=== PATIENT | female | born 1995 | race Caucasian/White ===

== ENCOUNTER 2017-08-22 11:56 | Emergency (ER) | payer OTHER ==
[2017-08-22 14:15] LABS: BASO % 0.3 % (0.0-1.0); EOS # 0.1 10^3/uL (0.0-0.50); EOS % 0.6 % (0.0-3.0); HEMOGLOBIN 10.7 g/dl (12.0-15.5); IMMATURE GRANULOCYTE % 0.4 % (0-3.0); LYMPH # 1.2 10^3/uL (1.5-6.5); LYMPH % 9.5 % (24.0-44.0); MEAN CORPUSCULAR HEMOGLOBIN 19.2 pg (27.0-33.0); MEAN CORPUSCULAR HGB CONC 31.5 g/dl (32.0-36.5); MONO # 0.8 10^3/uL (0.0-0.8); MONO % 6.5 % (0.0-5.0); NEUTROPHILS # 10.5 10^3/uL (1.8-7.7); NEUTROPHILS % 82.7 % (36.0-66.0); PLATELET COUNT, AUTOMATED 227 10^3/uL (150-450); RED BLOOD COUNT 5.57 10^6/uL (4.00-5.40); RED CELL DISTRIBUTION WIDTH 15.9 % (11.5-14.5); WHITE BLOOD COUNT 12.7 10^3/uL (4.0-10.0)
[2017-08-22 14:24] LABS: AMORPHOUS SEDIMENT SMALL (NEGATIVE); APPEARANCE, URINE CLOUDY (CLEAR); BACTERIA, URINE AUTO 3+ (NEGATIVE); BILIRUBIN, URINE AUTO NEGATIVE (NEGATIVE); BLOOD, URINE BLOOD NEGATIVE (NEGATIVE); COLOR, URINE AMBER (YELLOW); GLUCOSE, URINE (UA) AUTO NEGATIVE (NEGATIVE); KETONE, URINE AUTO NEGATIVE (NEGATIVE); LEUKOCYTE ESTERASE, URINE AUTO NEGATIVE (NEGATIVE); MUCUS, URINE LARGE (NEGATIVE); NITRITE, URINE AUTO POSITIVE (NEGATIVE); PROTEIN, URINE AUTO 1+ mg/dL (NEGATIVE); RBC, URINE AUTO 2 /HPF (0-3); SPECIFIC GRAVITY URINE AUTO 1.026 (1.002-1.035); SQUAMOUS EPITHELIAL CELL UR AU 14 /HPF (0-6); TRANSITIONAL EPITHELIAL AUTO 1 /HPF; WBC, URINE AUTO 3 /HPF (0-3)
[2017-08-22 14:48] LABS: HCG, SERUM QUANTITATIVE 65444 MIU/ML
[2017-08-22 16:03] LABS: CHLAMYDIA DNA AMPLIFICATION NEGATIVE (NEGATIVE); GC DNA AMPLIFICATION NEGATIVE (NEGATIVE)
[2017-08-22] MEDS ORDERED: RHOGAM 300 MCG (1500 IU) INJ (J2790) IM (16:15)
[2017-08-22 17:03] LABS: AB SCREEN (INDIRECT COOMBS)VIS 1 1
== END 2017-08-22 17:29 | disposition home or self-care (01) ==
LOC: M ED 11:56
DX: O20.8 Other hemorrhage in early pregnancy (principal); Z3A.10 10 weeks gestation of pregnancy
CPT/HCPCS: 76801

== ENCOUNTER 2018-01-28 14:38 | Outpatient (CLI) | payer OTHER ==
[~2018-01-28] VITALS: Ht 167.6 cm; Wt 75.7 kg
[~2018-01-28 14:38] MED LIST: IRON325T7 PO; PRENTAB55 PO
[2018-01-28 14:54] VITALS: BP 108/51
[2018-01-28] MEDS ORDERED: PRENTAB9 PO (15:00)
[2018-01-28 15:30] VITALS: BP 111/58
[2018-01-28 16:15] VITALS: BP 107/59
[2018-01-28 16:18] LABS: HEMATOCRIT 25.1 % (36.0-47.0); HEMOGLOBIN 7.6 g/dl (12.0-15.5); MEAN CORPUSCULAR HEMOGLOBIN 18.5 pg (27.0-33.0); MEAN CORPUSCULAR HGB CONC 30.3 g/dl (32.0-36.5); MEAN CORPUSCULAR VOLUME 61.1 fl (80.0-96.0); PLATELET COUNT, AUTOMATED 147 10^3/uL (150-450); RED BLOOD COUNT 4.11 10^6/uL (4.00-5.40); WHITE BLOOD COUNT 8.6 10^3/uL (4.0-10.0)
--- NOTE | 2018-01-29 10:13 | HPE ---
DATE OF ADMISSION: 01/28/2018 This lady is a 22-year-old 4, para 1, abort 2. LMP 06/12/2017, EDC 03/19/2018. She is at 33 and 2 weeks of gestation. She is a transfer of care out to [facility] with the lining ironer. She had a history of fall yesterday on the ice but did not come in. She denies any vaginal bleeding or loss. Good kick chart and then she fell again today at work in the water again on her back. Denies any vaginal bleeding or loss and we have limited history on the patient. Her past history in 2015 spontaneous . 2016 at 40 weeks 6 days, 3.9 kg 8 pounds 13 ounces male spontaneous vaginal delivery. 2018 had a spontaneous at 11 weeks. Risk factors is she is O negative. 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 Patient's history says she has had abnormal Pap smear done at 13 weeks but does not know what the etiology is. She on ultrasound shows has a two-vessel cord. She did not do her 1-hour glucose test. She is significantly dehydrated today. She is MRSA positive as of 2018. Poor care compliance and there is a question of blood transfusion, however, the patient has no recollection or history. Her urine is 10/25, pH is 5, trace of leukocyte plus for nitrates and plus for protein. She is significantly anemic in that her hemoglobin is 7.6, hematocrit 25.1 and platelets are 147, blood pressure is 107/59, respirations are 18, pulse is 92, temperature 98.3 PHYSICAL EXAMINATION: She is in no acute distress. Symphysis fundus height is 32. Four quadrant bowel sounds are noted. She has multiple tattoos over her abdomen and the rest of her body. heart rate is regular 146 beats per minute. Category one strip moderate variability, baseline 110-130. No contractions noted. The occasional irritability and tightening no decelerations were noted. Scan at the bedside shows a vertex presentation with active limits, spontaneous breathing, heart cardiac activity 144 beats per minute. Placenta is posterior. No bleeding. STEPH noted in three to four quadrants appeared to be grossly normal subjectively. No spotting or vaginal bleeding. Cervix appears to be closed. The rest of the examination is unremarkable. She is normocephalic, atraumatic. Neck: Full range of motions. Pupils equal and reactive to light. She has significant dehydration. Her lips are cracked and skin is dry and skin turgor is poor. Chest is clear bilaterally bases. No wheezes or rhonchi. No CVA tenderness. Distal pulses symmetric. No evidence of DVT, PE or superficial phlebitis. Body is covered with multiple tattoos. Four quadrant bowel sounds are noted. Soft abdomen with spontaneous movements of the baby. No rashes, lesions or pruritus. No arthralgia, myalgia. No complaint of joint pain. No complaint cough, wheeze, shortness breath or dyspnea on exertion. No bleeding. Neuro complete. No incontinency or frequency. No nausea, vomiting, diarrhea or constipation. No diabetic issues. [employer] according to the patient she has an abnormal Pap smear unconfirmed. PAST MEDICAL HISTORY: Unremarkable. PAST SURGICAL HISTORY: Unremarkable. SOCIAL HISTORY: She does not smoke, drink abuse drugs. She is . Works at [employer]. No domestic violence. Good support. She is here with her mother. In summary we have a 33-weeker who fell more than 24 hours ago. No evidence of vaginal loss or bleeding. Has poor care poor compliance multiple issues in the fact she has a bicornate uterus two-vessel cord, MRSA positive and was hydrated up here and blood work was drawn. Precautions were given and she has an appointment on with her primary-care lining ironer in [place]. She was discharged undelivered. cc: [facility] Dee
== END 2018-01-28 16:30 | disposition home or self-care (01) ==
LOC: M LDI 14:38 → M LDO 14:38
PROVIDERS: ATTEND Obstetrics & Gynecology
DX: O99.89 Other specified diseases and conditions complicating pregnancy, childbirth and the puerperium (principal); O9A.213 Injury, poisoning and certain other consequences of external causes complicating pregnancy, third trimester; W16.42XA Fall into unspecified water causing other injury, initial encounter; Y92.59 Other trade areas as the place of occurrence of the external cause; O99.283 Endocrine, nutritional and metabolic diseases complicating pregnancy, third trimester; E86.0 Dehydration; O09.893 Supervision of other high risk pregnancies, third trimester; O09.33 Supervision of pregnancy with insufficient antenatal care, third trimester; D64.9 Anemia, unspecified; O36.0190 Maternal care for anti-D [Rh] antibodies, unspecified trimester, not applicable or unspecified; B95.62 Methicillin resistant Staphylococcus aureus infection as the cause of diseases classified elsewhere; O35.8XX0 Maternal care for other (suspected) fetal abnormality and damage, not applicable or unspecified; Z3A.33 33 weeks gestation of pregnancy; O34.00 Maternal care for unspecified congenital malformation of uterus, unspecified trimester; Q51.3 Bicornate uterus; O99.011 Anemia complicating pregnancy, first trimester
CPT/HCPCS: 36415; 59025; 76815; 85027; 85460; 86850; 86870; 86900; 86901; G0378; G0463

== ENCOUNTER → 2018-02-08 | Outpatient (REF) | payer OTHER ==
[~2018-02-08] MED LIST changes: +PRENTAB9 PO
[2018-02-08 15:41] LABS: INFLUENZA A AMPLIFICATION NEGATIVE (NEGATIVE); INFLUENZA B AMPLIFICATION NEGATIVE (NEGATIVE)
== END ==
LOC: M LAB REF 14:42
PROVIDERS: ATTEND Physician Assistant
DX: J11.1 Influenza due to unidentified influenza virus with other respiratory manifestations (principal)

== ENCOUNTER 2018-09-28 20:16 | Emergency (ER) | payer OTHER ==
[~2018-09-28] VITALS: Ht 167.6 cm; Wt 59.1 kg
[~2018-09-28 20:16] MED LIST changes: +FERR325T82 PO; -IRON325T7 PO
[2018-09-28] MEDS ORDERED: MICR1TAB18 PO (20:20)
[2018-09-28] MEDS ORDERED: birth control tablet (20:20)
[2018-09-28] MEDS ORDERED: ACETAMINOPHEN 325 MG TAB PO ONE (21:15)
[2018-09-28 22:43] VITALS: BP 126/60
--- NOTE | 2018-09-29 00:01 | ECGEPIP ---
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
== END 2018-09-28 22:44 | disposition home or self-care (01) ==
LOC: M ED 20:16
DX: B34.9 Viral infection, unspecified (principal); Z20.89 Contact with and (suspected) exposure to other communicable diseases; Z79.899 Other long term (current) drug therapy

== ENCOUNTER → 2019-01-24 | Outpatient (CLI) | payer OTHER ==
[~2019-01-24] MED LIST changes: +MICR1TAB18 PO; +birth control tablet
--- NOTE | 2019-01-24 19:29 | REP ---
First trimester obstetric sonography: History: Supervision of . Findings: Transabdominal and endovaginal scanning are performed. There is an intrauterine gestational sac containing a yolk sac, but no identifiable embryonic pole. By mean sac size diameter of 11 mm, gestational age estimate would be 5 weeks 6 days. There is a 2 cm complex cystic area in the maternal right ovary. Right ovarian dimensions are 4.3 x 2.3 x 2.5 cm. Left ovary measures 1.5 x 2.3 x 2.2 cm. There is a trace of fluid is in the cul-de-sac on the right. Uterine dimensions are 8.9 x 6.0 x 6.5 cm. Impression: There is an intrauterine gestational sac at 5 weeks 6 days by mean sac size diameter. There is a yolk sac but no identifiable embryonic pole. Clinical and possibly sonographic followup suggested. Electronically Signed by Jose Kumar MD 01/24/2019 07:58 P
== END ==
LOC: M RAD 15:31
PROVIDERS: ATTEND Nurse Practitioner Family
DX: Z32.01 Encounter for pregnancy test, result positive (principal); Z3A.01 Less than 8 weeks gestation of pregnancy

== ENCOUNTER → 2021-03-16 | Outpatient (CLI) | payer OTHER | LOC: M WHC 11:45 | PROVIDERS: ATTEND Specialist | DX: Z36.9 Encounter for antenatal screening, unspecified (principal); Z3A.20 20 weeks gestation of pregnancy ==

== ENCOUNTER → 2021-04-20 | Outpatient (CLI) | payer OTHER | LOC: M WHC 10:23 | PROVIDERS: ATTEND Specialist | DX: Z34.82 Encounter for supervision of other normal pregnancy, second trimester (principal); Z3A.25 25 weeks gestation of pregnancy ==

== ENCOUNTER → 2021-05-07 | Outpatient (CLI) | payer OTHER ==
[2021-05-07 15:30] LABS: HEMOGLOBIN 8.9 g/dl (12.0-15.5); MEAN CORPUSCULAR HEMOGLOBIN 19.2 pg (27.0-33.0); MEAN CORPUSCULAR HGB CONC 30.7 g/dl (32.0-36.5); MEAN CORPUSCULAR VOLUME 62.6 fl (80.0-96.0); PLATELET COUNT, AUTOMATED 189 10^3/uL (150-450); RED BLOOD COUNT 4.63 10^6/uL (4.00-5.40); WHITE BLOOD COUNT 10.8 10^3/uL (4.0-10.0)
[2021-05-07 17:05] LABS: GC DNA AMPLIFICATION NEGATIVE (NEGATIVE)
== END ==
LOC: M PLALAB 11:36
PROVIDERS: ATTEND Advanced Practice Midwife
DX: Z34.82 Encounter for supervision of other normal pregnancy, second trimester (principal)

== ENCOUNTER → 2021-05-11 | Outpatient (CLI) | payer OTHER ==
[2021-05-11 14:26] LABS: PERCENT SATURATION 9.7 % (13.2-45.0)
== END ==
LOC: M PLALAB 11:19
PROVIDERS: ATTEND Advanced Practice Midwife
DX: D56.3 Thalassemia minor (principal)

== ENCOUNTER → 2021-06-21 | Outpatient (CLI) | payer OTHER ==
[~2021-06-21] MED LIST changes: -MICR1TAB18 PO; +NORE1TAB94 PO
[2021-06-21 18:15] LABS: BILIRUBIN,DIRECT 0.1 MG/DL (0.0-0.2); BILIRUBIN,TOTAL 0.4 MG/DL (0.2-1.0); TOTAL PROTEIN 6.2 GM/DL (6.4-8.2)
== END ==
LOC: M PLALAB 14:55
PROVIDERS: ATTEND Advanced Practice Midwife
DX: D56.3 Thalassemia minor (principal); K83.1 Obstruction of bile duct

== ENCOUNTER → 2021-07-12 | Outpatient (REF) | payer OTHER | LOC: M SFHCWAGY 12:46 | PROVIDERS: ATTEND Obstetrics & Gynecology | DX: Z3A.37 37 weeks gestation of pregnancy ==

== ENCOUNTER 2021-07-19 20:26 | Outpatient (CLI) | payer OTHER ==
[~2021-07-19] VITALS: Ht 167.6 cm; Wt 88.0 kg
[2021-07-19 20:41] VITALS: BP 113/60
[2021-07-19] MEDS ORDERED: PRENTAB9 PO (20:57)
[2021-07-19] MEDS ORDERED: FOLI400T13 PO (20:57)
[2021-07-19] MEDS ORDERED: HOME MED LIST COMPLETE! XX SCH (21:00)
[2021-07-19 21:27] LABS: HEMATOCRIT 26.9 % (36.0-47.0); HEMOGLOBIN 7.9 g/dl (12.0-15.5); MEAN CORPUSCULAR HEMOGLOBIN 17.1 pg (27.0-33.0); MEAN CORPUSCULAR HGB CONC 29.4 g/dl (32.0-36.5); MEAN CORPUSCULAR VOLUME 58.2 fl (80.0-96.0); PLATELET COUNT, AUTOMATED 187 10^3/uL (150-450); RED BLOOD COUNT 4.62 10^6/uL (4.00-5.40)
[2021-07-19] MEDS ORDERED: IRON SUCROSE 100MG 5ML VIAL (J1756 PER 1MG) IV ONE (21:50)
[2021-07-19 22:39] VITALS: BP 118/55
[2021-07-19 22:58] VITALS: BP 112/55
[2021-07-19] MEDS ORDERED: IRON SUCROSE 400 MG in NS 250 ML OVER 2.5 HRS IV ONE (23:30)
[2021-07-20 00:24] VITALS: BP 117/59
[2021-07-20 01:09] VITALS: BP 123/60
== END 2021-07-20 01:18 | disposition home or self-care (01) ==
LOC: M LDO 20:26
PROVIDERS: ATTEND Advanced Practice Midwife
DX: O60.03 Preterm labor without delivery, third trimester (principal); O99.013 Anemia complicating pregnancy, third trimester; D50.9 Iron deficiency anemia, unspecified; D56.3 Thalassemia minor; W10.9XXA Fall (on) (from) unspecified stairs and steps, initial encounter; Y92.9 Unspecified place or not applicable; Y93.9 Activity, unspecified; Y99.8 Other external cause status; Z3A.38 38 weeks gestation of pregnancy
CPT/HCPCS: 36415; 59025; 85027; 85384; 85460; J1756

== ENCOUNTER 2021-07-23 13:05 | Outpatient (CLI) | payer OTHER ==
[~2021-07-23] VITALS: Ht 167.6 cm; Wt 87.0 kg
[~2021-07-23 13:05] MED LIST changes: +FOLI400T13 PO
[2021-07-23 13:20] VITALS: BP 114/64
[2021-07-23 15:02] VITALS: BP 106/69
== END 2021-07-23 15:15 | disposition home or self-care (01) ==
LOC: M LDO 13:05
PROVIDERS: ATTEND Specialist
DX: O26.893 Other specified pregnancy related conditions, third trimester (principal); O26.853 Spotting complicating pregnancy, third trimester; R25.2 Cramp and spasm; Z3A.38 38 weeks gestation of pregnancy

== ENCOUNTER 2021-07-28 20:02 | Inpatient (IN) | payer OTHER ==
[~2021-07-28] VITALS: Ht 167.6 cm; Wt 87.8 kg
[2021-07-28 20:29] VITALS: BP 119/61
[2021-07-28 20:58] LABS: HEMATOCRIT 29.3 % (36.0-47.0); HEMOGLOBIN 8.5 g/dl (12.0-15.5); MEAN CORPUSCULAR HEMOGLOBIN 17.2 pg (27.0-33.0); MEAN CORPUSCULAR VOLUME 59.2 fl (80.0-96.0); PLATELET COUNT, AUTOMATED 157 10^3/uL (150-450); RED BLOOD COUNT 4.95 10^6/uL (4.00-5.40); WHITE BLOOD COUNT 10.3 10^3/uL (4.0-10.0)
[2021-07-28] MEDS ORDERED: METHYLERGONOVINE MALEATE 0.2 MG/ML VIAL (J2210) IM PRN (21:25)
[2021-07-28] MEDS ORDERED: CARBOPROST TROMETHAMINE 250 MCG/ML AMP IM PRN (21:25)
[2021-07-28] MEDS ORDERED: OXYTOCIN INJ 10 UNITS/ML VIAL (J2590) IM PRN (21:25)
[2021-07-28] MEDS ORDERED: LIDOCAINE 1% MDV 20ML VIAL INFIL PRN (21:25)
[2021-07-28] MEDS ORDERED: OXYTOCIN DRIP 30 UNITS in IV 1 EA IV PRN ×4 (21:25)
[2021-07-28] MEDS ORDERED: TRANEXAMIC ACID INJection 1,000 MG in NS 100 ML IV PRN (21:25)
[2021-07-28 23:06] LABS: HEPATITIS B SURFACE ANTIGEN NEGATIVE (NEGATIVE); HEPATITIS C VIRUS ABY INDEX 0.1 INDEX (<0.8); HIV 1&2 SCREEN CENTAUR NEGATIVE (NEGATIVE)
[2021-07-28 23:16] VITALS: BP 121/60
[2021-07-28] MEDS: miSOPROStol 50MCG 1/2 TABLET PO SCH (23:17)
[2021-07-29] VITALS (57 sets, daily range): BP systolic 92–146; BP diastolic 50–84
[2021-07-29] MEDS: miSOPROStol 50MCG 1/2 TABLET PO SCH (04:11)
[2021-07-29] MEDS ORDERED: ACETAMINOPHEN 500 MG TAB PO PRN ×2 (04:15→13:45)
[2021-07-29] MEDS ORDERED: FENTANYL 2MCG/ML ROPIVACAINE 0.2% IN 0.9% NACL 100ML IVBAG As Ordered ONE (05:13)
[2021-07-29] MEDS ORDERED: LR 1,000 ML IV ONE (05:40)
[2021-07-29] MEDS ORDERED: diphenhydrAMINE 50MG/ML VIAL (J1200) IV PRN (05:50)
[2021-07-29] MEDS ORDERED: ONDANSETRON 4MG 2ML VIAL IV PRN (05:50)
[2021-07-29] MEDS ORDERED: FENTANYL/ROPIVACAINE/NACL BAG 100 ML EPIDURAL SCH (05:50)
[2021-07-29] MEDS ORDERED: NALOXONE INJ 0.4MG/1ML VIAL (J2310 PER 1MG) IV PRN (05:50)
[2021-07-29] MEDS ORDERED: EPIDURAL/PCA KEYS XX PRN (05:50)
[2021-07-29] MEDS ORDERED: ePHEDrine SULFATE 25 MG/5 ML(5MG/ML) SYRINGE IVP PRN (05:50)
[2021-07-29] MEDS ORDERED: LR 500 ML IV PRN (05:50)
[2021-07-29] MEDS: LR 1,000 ML IV SCH ×2 (05:54→10:14)
[2021-07-29] MEDS ORDERED: OXYTOCIN DRIP 30 UNITS in IV 1 EA IV SCH (08:10)
[2021-07-29] MEDS ORDERED: OXYTOCIN 30 UNITS IN 0.9% NaCl 500ML IV BAG (J2590) As Ordered ONE (08:17)
[2021-07-29] MEDS ORDERED: DOCUSATE SODIUM 100MG CAPSULE PO PRN (13:45)
[2021-07-29] MEDS ORDERED: METHYLERGONOVINE MALEATE 0.2 MG TAB PO PRN (13:45)
[2021-07-29] MEDS ORDERED: DIBUCAINE 1% OINTMENT 30GM TOP PRN (13:45)
[2021-07-29] MEDS ORDERED: IBUPROFEN 600MG TAB PO PRN (13:45)
[2021-07-29] MEDS ORDERED: OXYTOCIN DRIP 30 UNITS in IV 1 EA IV ONE (13:45)
[2021-07-29] MEDS ORDERED: ACETAMINOPHEN TAB 650MG DOSE (2X325MG) PO PRN (13:45)
[2021-07-29] MEDS ORDERED: RHOGAM 300 MCG (1500 IU) INJ (J2790) IM SCH (13:45)
[2021-07-29] MEDS: IBUPROFEN 800 MG TAB PO PRN (19:39)
[2021-07-30] MEDS: IBUPROFEN 800 MG TAB PO PRN ×2 (04:10→20:08)
[2021-07-30 06:00] VITALS: BP 117/55
[2021-07-30] MEDS: PRENATAL VITAMINS CHEWABLE TABLET PO SCH (09:25)
[2021-07-30 18:00] VITALS: BP 137/68
[2021-07-31 05:30] VITALS: BP 118/59
[2021-07-31] MEDS ORDERED: MEASLES,MUMPS,RUBELLA VACCINE INJ (MMR-II) (90707) SC.IMMUN ONE (09:00)
[2021-07-31] MEDS: PRENATAL VITAMINS CHEWABLE TABLET PO SCH (09:41)
== END 2021-07-31 11:35 | disposition home or self-care (01) | DRG 560 ==
LOC: M LDI 20:02 → M OBS 07-29 16:09
PROVIDERS: ADMIT Advanced Practice Midwife; ATTEND Advanced Practice Midwife
PROC: 10E0XZZ Delivery of Products of Conception, External Approach (ICD-10-PCS; principal; 2021-07-29)
DX: O99.02 Anemia complicating childbirth (principal); Z37.0 Single live birth; Z3A.39 39 weeks gestation of pregnancy; D56.9 Thalassemia, unspecified

== ENCOUNTER → 2021-08-23 | Outpatient (REF) | payer OTHER ==
[2021-08-23 16:05] LABS: BASO # 0.1 10^3/uL (0.0-0.2); BASO % 1.3 % (0.0-1.0); EOS # 0.2 10^3/uL (0.0-0.5); EOS % 3.6 % (0.0-3.0); HEMATOCRIT 37.4 % (36.0-47.0); HEMOGLOBIN 10.7 g/dl (12.0-15.5); LYMPH # 1.7 10^3/uL (1.5-5.0); LYMPH % 31.8 % (24.0-44.0); MEAN CORPUSCULAR HEMOGLOBIN 17.7 pg (27.0-33.0); MEAN CORPUSCULAR HGB CONC 28.6 g/dl (32.0-36.5); MEAN CORPUSCULAR VOLUME 61.8 fl (80.0-96.0); MONO # 0.5 10^3/uL (0.0-0.8); MONO % 8.8 % (2.0-8.0); NEUTROPHILS # 2.9 10^3/uL (1.5-8.5); NEUTROPHILS % 54.3 % (36.0-66.0); PLATELET COUNT, AUTOMATED 246 10^3/uL (150-450); RED BLOOD COUNT 6.05 10^6/uL (4.00-5.40); WHITE BLOOD COUNT 5.3 10^3/uL (4.0-10.0)
[2021-08-23 16:46] LABS: FOLATE 10.5 NG/ML (>5.4)
== END ==
LOC: M SFHCCLAY 10:09
PROVIDERS: ATTEND Nurse Practitioner Family
DX: D56.3 Thalassemia minor (principal); D50.9 Iron deficiency anemia, unspecified

== ENCOUNTER → 2021-09-08 | Outpatient (REF) | payer OTHER | LOC: M SFHCCLAY 09:43 | PROVIDERS: ATTEND Nurse Practitioner Family | DX: R05.1 Acute cough (principal) ==

== ENCOUNTER → 2023-10-17 | Outpatient (REF) | payer OTHER | LOC: M SFHCCLAY 15:19 | PROVIDERS: ATTEND Nurse Practitioner Family | DX: D56.3 Thalassemia minor (principal); D50.9 Iron deficiency anemia, unspecified; F41.9 Anxiety disorder, unspecified; M54.2 Cervicalgia; M54.50 Low back pain, unspecified ==

== ENCOUNTER → 2024-03-13 | Outpatient (REF) | payer OTHER ==
[2024-03-13 19:11] LABS: BASO # 0.1 10^3/uL (0.0-0.2); EOS # 0.2 10^3/uL (0.0-0.5); EOS % 3.8 % (0.0-3.0); HEMATOCRIT 41.5 % (36.0-47.0); HEMOGLOBIN 12.4 g/dl (12.0-15.5); LYMPH # 1.6 10^3/uL (1.5-5.0); LYMPH % 25.6 % (24.0-44.0); MEAN CORPUSCULAR HEMOGLOBIN 18.5 pg (27.0-33.0); MEAN CORPUSCULAR HGB CONC 29.9 g/dl (32.0-36.5); MEAN CORPUSCULAR VOLUME 61.8 fl (80.0-96.0); MONO # 0.6 10^3/uL (0.0-0.8); MONO % 10.1 % (2.0-8.0); NEUTROPHILS # 3.6 10^3/uL (1.5-8.5); NEUTROPHILS % 59.2 % (36.0-66.0); PLATELET COUNT, AUTOMATED 272 10^3/uL (150-450); RED BLOOD COUNT 6.72 10^6/uL (4.00-5.40); WHITE BLOOD COUNT 6.1 10^3/uL (4.0-10.0)
[2024-03-13 19:25] LABS: IRON (FE) 106 UG/DL (50-170); PERCENT SATURATION 30.3 % (13.2-45.0); TOTAL IRON BINDING CAPACITY 350 UG/DL (250-425)
[2024-03-13 19:26] LABS: ALBUMIN 4.3 G/DL (3.2-5.2); ALKALINE PHOSPHATASE 88 U/L (35-104); ALT/SGPT 13 U/L (7.0-40); AST/SGOT < 8 U/L (<34); BILIRUBIN,TOTAL 0.6 MG/DL (0.3-1.2); BLOOD UREA NITROGEN 19 MG/DL (9-23); CALCIUM LEVEL 9.4 MG/DL (8.5-10.1); CARBON DIOXIDE LEVEL 25 MMOL/L (20-31); CHLORIDE LEVEL 106 MMOL/L (98-107); CREATININE FOR GFR 0.68 MG/DL (0.55-1.30); GLOMERULAR FILTRATION RATE > 60.0 (>60); GLUCOSE, FASTING 88 MG/DL (60-100); POTASSIUM SERUM 5.3 MMOL/L (3.5-5.1); SODIUM LEVEL 141 MMOL/L (136-145); TOTAL PROTEIN 7.9 G/DL (5.7-8.2)
[2024-03-13 19:30] LABS: FREE T4 1.01 NG/DL (0.89-1.76)
== END ==
LOC: M SFHCCLAY 08:43
PROVIDERS: ATTEND Nurse Practitioner Family
DX: D56.3 Thalassemia minor (principal); D50.9 Iron deficiency anemia, unspecified; F41.9 Anxiety disorder, unspecified; M54.2 Cervicalgia; M54.50 Low back pain, unspecified

== ENCOUNTER → 2024-04-15 | Outpatient (CLI) | payer OTHER | LOC: M WHC 13:04 | PROVIDERS: ATTEND Nurse Practitioner Family | DX: N64.4 Mastodynia (principal); Z80.3 Family history of malignant neoplasm of breast; N63.41 Unspecified lump in right breast, subareolar; N63.42 Unspecified lump in left breast, subareolar ==

== ENCOUNTER → 2024-06-11 | Outpatient (REF) | payer OTHER ==
[2024-06-13 15:22] LABS: HPV APTIMA Not Detected (Not Detected)
== END ==
LOC: M SFHCCLAY 09:06
PROVIDERS: ATTEND Nurse Practitioner Family
DX: Z12.4 Encounter for screening for malignant neoplasm of cervix (principal)

== ENCOUNTER → 2024-08-22 | Outpatient (CLI) | payer OTHER | LOC: M WHC 14:35 | PROVIDERS: ATTEND Nurse Practitioner Family | DX: N83.291 Other ovarian cyst, right side (principal) ==